=== PATIENT | male | born 1985 | race Hispanic/Latino ===

== ENCOUNTER 2018-07-31 11:36 | Outpatient (CLI) | payer BC ==
--- NOTE | 2018-07-31 11:58 | RAD ---
CHEST: Date: 07/31/18 COMPARISON: None. HISTORY: Nonspecific reaction to TB skin test. FINDINGS: Two views of the chest show normal sized cardiomediastinal silhouette. There is no evidence of consol idation, mass, or pleural effusion. The bones are unremarkable. IMPRESSION: No evidence of acute cardiopulmonary disease. POS: [facility]
== END 2018-07-31 11:37 | disposition home or self-care (01) ==
LOC: BICRAD 11:36
PROVIDERS: ATTEND Family Medicine
DX: R76.11 Nonspecific reaction to tuberculin skin test without active tuberculosis (principal)
CPT/HCPCS: 71046